=== PATIENT | female | born 1975 | race Caucasian/White ===

== ENCOUNTER 2018-10-11 17:29 | Inpatient (IN) | payer OTHER, MEDICAID ==
[~2018-10-11] VITALS: Ht 175.3 cm; Wt 95.7 kg
--- NOTE | 2018-10-11 18:00 | NUR ---
MARY PRATHER 878 From home "Tried to overdose yesterday on depakote now c/o nausea/Headache-feel weak". On room air, ambulatory with steady gait. kept comfortable. will continue to monitor accordingly. in no apparent distress at this time.
--- NOTE | 2018-10-11 18:10 | NUR ---
urine collected and sent to lab
[2018-10-11 18:38] LABS: BASOPHILS % (AUTO) 0.4 % (0.0-2.0); EOSINOPHILS % (AUTO) 0.5 % (0.0-6.0); HEMATOCRIT 42 % (33-45); HEMOGLOBIN 14.1 g/dL (11.5-14.8); LYMPHOCYTES # (AUTO) 1.6 /CMM (0.8-4.8); LYMPHOCYTES % (AUTO) 38.2 % (20.0-44.0); MEAN CORPUSCULAR HGB CONC 34 g/dl (31.0-36.0); MEAN CORPUSCULAR VOLUME 91 fL (82-100); MONOCYTES # (AUTO) 0.1 /CMM (0.1-1.30); MONOCYTES % (AUTO) 3.4 % (2.0-12.0); NEUTROPHILS # (AUTO) 2.4 /CMM (1.8-8.9); NEUTROPHILS % (AUTO) 57.5 % (43.0-81.0); PLATELET COUNT (AUTO) 216 /CMM (150-450); RED BLOOD CELL COUNT(AUTO) 4.59 MIL/uL (4.0-5.2); WHITE BLOOD COUNT (AUTO) 4.1 K/uL (4.3-11.0)
[2018-10-11 18:51] LABS: CALCIUM, SERUM 8.2 mg/dL (8.5-10.1); CARBON DIOXIDE 26 mmol/L (21-32); CHLORIDE 103 mmol/L (98-107); GLUCOSE 92 mg/dL (74-106); POTASSIUM 3.6 mmol/L (3.5-5.1); SODIUM SERUM 141 mmol/L (136-145); UREA NITROGEN, BLOOD 14 mg/dL (7-18)
[2018-10-11 18:58] LABS: ALANINE AMINOTRANSFERASE 23 U/L (12-78); ALBUMIN 3.3 g/dL (3.4-5.0); ALCOHOL, BLOOD < 3 mg/dL (0-0); ALKALINE PHOSPHATASE 32 U/L (46-116); ASPARTATE AMINOTRANSFERASE 16 U/L (15-37); BILIRUBIN,DIRECT 0.1 mg/dL (0.0-0.2); BILIRUBIN,TOTAL 0.3 mg/dL (0.2-1.0); TOTAL PROTEIN, SERUM 7.1 g/dL (6.4-8.2)
[2018-10-11 18:59] LABS: ACETAMINOPHEN < 2 ug/ml (10-30); SALICYLATE 1.2 mg/dL (2.8-20.0)
[2018-10-11 19:07] LABS: APPEARANCE,URINE CLEAR (CLEAR); BILIRUBIN,URINE NEGATIVE (NEGATIVE); BLOOD, URINE NEGATIVE Ery/uL (NEGATIVE); COLOR,URINE YELLOW (YELLOW); KETONES,URINE TRACE (NEGATIVE); LEUKOCYTE ESTERASE ,URINE NEGATIVE (NEGATIVE); NITRITE, URINE NEGATIVE (NEGATIVE); PROTEIN,URINE NEGATIVE (NEGATIVE); UGLUCOSE NEGATIVE (NEGATIVE); UROBILINOGEN,URINE 0.2 EU/dL (0.2)
[2018-10-11 19:21] LABS: BACTERIA,URINE N0 /HPF (None Seen); RBC,URINE 0-2 /HPF (0-2); SQUAMOUS EPITHELIAL CELL,UR 0-2 /HPF (None Seen); WBC,URINE 0-2 /HPF (0-3)
--- NOTE | 2018-10-11 19:35 | NUR ---
PATIENT VERBALIZED N/V, VOMITED X1, RECEIVED VERBAL ORDER FROM DR. BAUMAN TO GIVE REGLAN 10MG IM X1 DOSE. ORDER NOTED AND CARRIED OUT.
[2018-10-11] MEDS ORDERED: METOCLOPRAMIDE HCL 10 MG/2 ML VIAL IM ONE (20:00)
[2018-10-11] MEDS ORDERED: KETOROLAC TROMETHAMINE INJ 60 MG/2 ML VIAL IM ONE (20:30)
[2018-10-11] MEDS ORDERED: ONDANSETRON 4 MG TAB.RAPDIS SL ONE (20:30)
[2018-10-11] MEDS ORDERED: ONDANSETRON 4 MG TAB.RAPDIS ONE (20:49)
[2018-10-11] MEDS ORDERED: KETOROLAC TROMETHAMINE INJ 30 MG/ML VIAL ONE (20:49)
[2018-10-11] MEDS ORDERED: METOCLOPRAMIDE HCL 10 MG/2 ML VIAL ONE (20:49)
[2018-10-11] MEDS ORDERED: ONDANSETRON HCL/PF 4 MG/2 ML VIAL IV ONE (21:00)
--- NOTE | 2018-10-11 21:45 | NUR ---
STARTED IV ACCESS ON LHAND #20G
--- NOTE | 2018-10-11 21:50 | NUR ---
[facility] PAGED
--- NOTE | 2018-10-11 21:51 | NUR ---
[employer]AT[employer] ATTENDANT [employer]YSICAN PAGED
--- NOTE | 2018-10-11 22:00 | NUR ---
Pt REFUSED IV ZOFRAN AT THIS TIME. Pt STATED SHE DOES NOT FEEL NAUSEATED ANYMORE AND DID NOT WANT THE ZOFRAN.
--- NOTE | 2018-10-11 23:27 | NUR ---
Pt REQUESTING TO EAT. SAID SHE IS NO LONGER FEELING NAUSEATED AND IS NO LONGER VOMITING. MD SAID SNACKS FOR Pt IS FINE.
--- NOTE | 2018-10-12 00:30 | NUR ---
RN MS ADMITTING NOTES RECEIVED PT FROM ER VIA AJIT, PT AMBULATORY, AWAKE ALERT ORIENTED X4, BREATHING EVEN AND UNLABORED. NO COMPLAINT OF PAIN OR DISCOMFORT AT THIS TIME, IV ACCESS ON THE L HAND 18G. TELE MONITOR PLACE, SR IN THE 80S. BED IN LOWEST LOCKED POSITION, CALL LIGHT WITHIN REACH AT ALL TIMES. WILL CONTINUE TO MONITOR FREQUENTLY
--- NOTE | 2018-10-12 00:30 | NUR ---
Pt WAS SAFELY TRANSPORTED TO [facility] ROOM 107. REPORT WAS GIVEN TO RN, DEE DEE. NO S/S OF ACUTE DISTRESS OR SOB NOTED. RESPIRATIONS EVEN AND UNLABORED.
[2018-10-12] MEDS ORDERED: HYDROCODONE/APAP 5/325MG 1 EACH TABLET PO PRN (01:00)
[2018-10-12] MEDS ORDERED: Z GUARD REMEDY 2 OZ OINT TP PRN (01:00)
[2018-10-12] MEDS ORDERED: MAG HYDROX/AL HYDROX/SIMETH 30 ML UDC PO PRN (01:00)
[2018-10-12] MEDS ORDERED: TEMAZEPAM 15 MG CAPSULE PO PRN (01:00)
[2018-10-12] MEDS ORDERED: MAGNESIUM HYDROXIDE 30 ML UDC PO PRN (01:00)
[2018-10-12] MEDS ORDERED: ACETAMINOPHEN 325 MG TABLET PO PRN (01:00)
[2018-10-12] MEDS ORDERED: ONDANSETRON HCL/PF 4 MG/2 ML VIAL IVP PRN (01:00)
[2018-10-12] MEDS: IV NS 0.9% 1,000 ML IV PRN ×2 (01:27→16:19)
[2018-10-12 04:00] VITALS: BP 116/60
[2018-10-12 04:05] VITALS: BP 116/60
--- NOTE | 2018-10-12 06:02 | NUR ---
RN MS CLOSING NOTE PT REMAINS IN BED, AWAKE ALERT ORIENTED X4, BREATHING EVEN AND UNLABORED ON RA. NO COMPLAIN OF PAIN OR DISCOMFORT AT THE MOMENT. IV ACCESS ON THE L HAND 18G WITH NS @75ML/HR. ASSEMBLER FISHING FLOATS IN PLACE, SR IN THE 70S BED IN LOWEST LOCKED POSITION, CALL LIGHT WITHIN REACH AT ALL TIMES, WILL ENDORSE TO DAY NURSE FOR TANO.
--- NOTE | 2018-10-12 06:14 | NUR ---
IV ACCESS ON THE L WRIST 24G
--- NOTE | 2018-10-12 07:35 | NUR ---
TELE/RN OPENING NOTES RECEIVED PATIENT IN BED, AWAKE, ALERT AND ORIENTED X4. ABLE TO MAKE NEEDS KNOWN. NO PAIN OR ACUTE DISTRESS AT THIS TIME. RESPIRATION EVEN AND UNLABORED ON ROOM AIR. PATIENT NOTED WITH IV ACCESS ON THE L WRIST 20G WITH NS @75ML/HR. TOLERATED WELL. DRAMATIC CRITIC IN PLACE, SR 75. ALL NEEDS ANTICIPATED. CALL LIGHT WITHIN REACHED. BED IN LOWEST LOCKED POSITION. SAFETY MAINTAINED. WILL TO MONITOR PATIENT CLOSELY.
[2018-10-12 08:00] VITALS: BP_SYST 115; BP_SYST 136; BP_DIAS 69; BP_DIAS 87
[2018-10-12] MEDS ORDERED: ESTR1PAT23 TD (08:03)
[2018-10-12] MEDS ORDERED: DIVA500T2 PO (08:03)
[2018-10-12] MEDS ORDERED: SPIR100T5 PO (08:03)
[2018-10-12 12:00] VITALS: BP 108/58
[2018-10-12 14:19] LABS: SERUM AMMONIA 27 umol/L (11-32)
[2018-10-12 14:22] LABS: VALPROIC ACID 71 ug/mL (50-100)
[2018-10-12 16:00] VITALS: BP 115/70
--- NOTE | 2018-10-12 18:30 | NUR ---
TELE/DRIER UNLOADER NOTES PATIENT REMAINED STABLE THROUGHOUT THE SHIFT. PROVIDED COMFORT AND SAFETY. A FAMILY MEMBER CAME TO THE UNIT TO WET PROCESS MILLER THE PATIENT. ALL DISCHARGE PAPERS WAS GIVEN AND SIGNED. PATIENT ABLE TO UNDERSTAND EXIT TEACHINGS. PATIENT BELONGINGS WAS GIVEN AND SIGNED WELL. PATIENT ABLE TO AMBULATE AND WAS ACCOMPANIED OUT OF THE UNIT. PATIENT LEFT THE UNIT IN STABLE CONDITION.
== END 2018-10-12 19:00 | disposition home or self-care (01) | DRG 918 ==
LOC: ER 17:32 → MEDSG1 23:34 → TELE1 10-12 00:59
PROVIDERS: ADMIT Internal Medicine; ATTEND Hospitalist
DX: T42.6X2A Poisoning by other antiepileptic and sedative-hypnotic drugs, intentional self-harm, initial encounter (principal); E44.1 Mild protein-calorie malnutrition; R45.851 Suicidal ideations; Y92.009 Unspecified place in unspecified non-institutional (private) residence as the place of occurrence of the external cause; I10 Essential (primary) hypertension; F43.10 Post-traumatic stress disorder, unspecified; Z68.31 Body mass index [BMI] 31.0-31.9, adult; F32.9 Major depressive disorder, single episode, unspecified; F41.9 Anxiety disorder, unspecified; E88.09 Other disorders of plasma-protein metabolism, not elsewhere classified; G40.909 Epilepsy, unspecified, not intractable, without status epilepticus; Z79.890 Hormone replacement therapy
CPT/HCPCS: 36415; 80048-TC; 80076-TC; 80164-TC; 80305; 81000-TC; 82140-TC; 85025-TC; 87081-TC; G0378; G0480; J1885; J2765; J7030; Q0162

== ENCOUNTER 2019-03-22 17:18 | Emergency (ER) | payer OTHER, MEDICAID ==
[~2019-03-22] VITALS: Ht 177.8 cm; Wt 77.1 kg
[~2019-03-22 17:18] MED LIST: DIVA500T2 PO; ESTR1PAT23 TD; SPIR100T5 PO
--- NOTE | 2019-03-22 18:30 | NUR ---
Updated w/plan of care. Awaiting update and disposition . Diet served - tolerated/ate 90%
[2019-03-22 18:48] LABS: BASOPHILS # (AUTO) 0.1 /CMM (0.0-0.2); BASOPHILS % (AUTO) 0.9 % (0.0-2.0); EOSINOPHILS % (AUTO) 1.4 % (0.0-6.0); HEMATOCRIT 46 % (33-45); HEMOGLOBIN 15.6 g/dL (11.5-14.8); LYMPHOCYTES # (AUTO) 2.5 /CMM (0.8-4.8); LYMPHOCYTES % (AUTO) 26.6 % (20.0-44.0); MEAN CORPUSCULAR HGB CONC 34 g/dl (31.0-36.0); MEAN CORPUSCULAR VOLUME 88 fL (82-100); MONOCYTES # (AUTO) 0.6 /CMM (0.1-1.30); MONOCYTES % (AUTO) 6.9 % (2.0-12.0); NEUTROPHILS % (AUTO) 64.2 % (43.0-81.0); PLATELET COUNT (AUTO) 307 /CMM (150-450); RED BLOOD CELL COUNT(AUTO) 5.24 MIL/uL (4.0-5.2); WHITE BLOOD COUNT (AUTO) 9.4 K/uL (4.3-11.0)
[2019-03-22 18:56] LABS: CALCIUM, SERUM 9.7 mg/dL (8.5-10.1); CARBON DIOXIDE 24 mmol/L (21-32); CHLORIDE 100 mmol/L (98-107); CREATININE 1.2 mg/dL (0.6-1.3); GLUCOSE 267 mg/dL (74-106); POTASSIUM 3.8 mmol/L (3.5-5.1); SODIUM SERUM 136 mmol/L (136-145); UREA NITROGEN, BLOOD 18 mg/dL (7-18)
[2019-03-22] MEDS ORDERED: IV NS 0.9% 1,000 ML BAG IV ONE (19:00)
--- NOTE | 2019-03-22 19:22 | NUR ---
RUTHANN w/TONY Manrique
[2019-03-22 19:24] LABS: APPEARANCE,URINE Clear (CLEAR); BILIRUBIN,URINE Negative (NEGATIVE); BLOOD, URINE Negative Ery/uL (NEGATIVE); COLOR,URINE Yellow (YELLOW); KETONES,URINE Negative (NEGATIVE); LEUKOCYTE ESTERASE ,URINE Negative (NEGATIVE); NITRITE, URINE Negative (NEGATIVE); PH,URINE 5.5 (5.0-8.0); PROTEIN,URINE Negative (NEGATIVE); UGLUCOSE 250 MG/DL mg/dL (NEGATIVE); UROBILINOGEN,URINE 0.2 EU/dL (0.2)
--- NOTE | 2019-03-22 20:32 | NUR ---
IV removed. Catheter intact and site benign. Pressure and 4x4 applied to site. No bleeding noted.Patient discharged to home in stable condition. Written and verbal after care instructions given. Patient verbalizes understanding of instruction.
[2019-03-22 21:22] VITALS: BP 135/68
== END 2019-03-22 20:35 | disposition home or self-care (01) ==
LOC: ER 17:26
DX: R00.2 Palpitations (principal); E11.65 Type 2 diabetes mellitus with hyperglycemia; E78.5 Hyperlipidemia, unspecified; R00.0 Tachycardia, unspecified; R56.9 Unspecified convulsions; E78.00 Pure hypercholesterolemia, unspecified; I10 Essential (primary) hypertension; Z98.890 Other specified postprocedural states; Z60.2 Problems related to living alone; Z79.899 Other long term (current) drug therapy
CPT/HCPCS: 36415; 71045; 80048; 81001; 84484; 85025; 85378; 93005; 99284; J7030; 81000-TC

== ENCOUNTER 2019-08-23 13:49 | Emergency (ER) | payer OTHER ==
[~2019-08-23] VITALS: Ht 177.8 cm; Wt 99.8 kg
--- NOTE | 2019-08-23 14:15 | NUR ---
patient BIBRA from home, c/o abd pain since this morning and nausea vomiting, coughing x 3 days. On room air, breathing evenly and unlabored, connected to the monitor and pulse ox, will continue to monitor accordingly.
[2019-08-23 14:28] LABS: BASOPHILS % (AUTO) 0.5 % (0.0-2.0); EOSINOPHILS % (AUTO) 0.6 % (0.0-6.0); HEMATOCRIT 44 % (33-45); HEMOGLOBIN 14.9 g/dL (11.5-14.8); LYMPHOCYTES % (AUTO) 25.8 % (20.0-44.0); MEAN CORPUSCULAR HGB CONC 34 g/dl (31.0-36.0); MEAN CORPUSCULAR VOLUME 88 fL (82-100); MONOCYTES # (AUTO) 0.5 /CMM (0.1-1.30); MONOCYTES % (AUTO) 7.1 % (2.0-12.0); PLATELET COUNT (AUTO) 303 /CMM (150-450); RED BLOOD CELL COUNT(AUTO) 4.98 MIL/uL (4.0-5.2); WHITE BLOOD COUNT (AUTO) 7.6 K/uL (4.3-11.0)
[2019-08-23] MEDS ORDERED: PANTOPRAZOLE 40 MG VIAL ONE (14:30)
[2019-08-23] MEDS ORDERED: ONDANSETRON HCL/PF 4 MG/2 ML VIAL ONE (14:30)
[2019-08-23] MEDS ORDERED: ONDANSETRON HCL/PF - ER 4 MG/2 ML VIAL IV ONE (14:30)
[2019-08-23] MEDS ORDERED: PANTOPRAZOLE 40 MG VIAL IV ONE (14:30)
[2019-08-23 14:35] LABS: CALCIUM, SERUM 9.1 mg/dL (8.5-10.1); POTASSIUM 3.8 mmol/L (3.5-5.1)
[2019-08-23 14:41] LABS: ALBUMIN 3.5 g/dL (3.4-5.0); BILIRUBIN,DIRECT 0.1 mg/dL (0.0-0.2); BILIRUBIN,TOTAL 0.6 mg/dL (0.2-1.0); TOTAL PROTEIN, SERUM 7.9 g/dL (6.4-8.2)
[2019-08-23 14:51] LABS: BILIRUBIN,URINE Negative (NEGATIVE); BLOOD, URINE Trace-intact Ery/uL (NEGATIVE); COLOR,URINE Yellow (YELLOW); PROTEIN,URINE 30 mg/dl (NEGATIVE); UGLUCOSE Negative (NEGATIVE)
[2019-08-23 14:52] LABS: KETONES,URINE Trace (NEGATIVE); LEUKOCYTE ESTERASE ,URINE Negative (NEGATIVE); NITRITE, URINE Negative (NEGATIVE); UROBILINOGEN,URINE 0.2 EU/dL (0.2)
[2019-08-23 14:57] LABS: APPEARANCE,URINE SLIGHTLY HAZY (CLEAR)
[2019-08-23 15:01] LABS: BACTERIA,URINE None seen /HPF (None Seen); MUCUS,URINE Moderate /LPF (None Seen); SQUAMOUS EPITHELIAL CELL,UR Moderate /HPF (None Seen)
[2019-08-23 16:48] VITALS: BP 125/67
--- NOTE | 2019-08-23 16:48 | NUR ---
Patient discharged to home in stable condition. Written and verbal after care instructions given. Patient verbalizes understanding of instruction.IV removed. Catheter intact and site benign. Pressure and 4x4 applied to site. No bleeding noted.
== END 2019-08-23 16:48 | disposition home or self-care (01) ==
LOC: ER 13:56
DX: R10.13 Epigastric pain (principal); R74.0 Nonspecific elevation of levels of transaminase and lactic acid dehydrogenase [LDH]; F43.10 Post-traumatic stress disorder, unspecified; G40.909 Epilepsy, unspecified, not intractable, without status epilepticus; E78.5 Hyperlipidemia, unspecified; I10 Essential (primary) hypertension; K21.9 Gastro-esophageal reflux disease without esophagitis; E78.00 Pure hypercholesterolemia, unspecified; Z98.890 Other specified postprocedural states; Z60.2 Problems related to living alone; Z79.899 Other long term (current) drug therapy
CPT/HCPCS: 36415; 71045; 76705; 80048; 80076; 80164; 81001; 83690; 85025; 96374; 96375; 99285; C9113; J2405 ×2; 81000-TC

== ENCOUNTER 2019-10-03 03:24 | Emergency (ER) | payer OTHER ==
[~2019-10-03] VITALS: Ht 177.8 cm; Wt 99.8 kg
[2019-10-03 03:24] VITALS: BP 138/72
[2019-10-03] MEDS ORDERED: ONDANSETRON HCL/PF 4 MG/2 ML VIAL ONE (03:34)
[2019-10-03] MEDS ORDERED: AMOX/CLAVULANATE 875 MG TABLET ONE (03:59)
[2019-10-03] MEDS ORDERED: AMOX/CLAVULANATE 875 MG TABLET PO ONE (04:00)
[2019-10-03] MEDS ORDERED: ONDANSETRON HCL/PF 4 MG/2 ML VIAL IVP ONE (04:00)
[2019-10-03] MEDS ORDERED: IV NS 0.9% 1,000 ML BAG IV ONE (04:00)
== END 2019-10-03 04:49 | disposition home or self-care (01) ==
LOC: ER 03:27
DX: S51.811A Laceration without foreign body of right forearm, initial encounter (principal); S61.216A Laceration without foreign body of right little finger without damage to nail, initial encounter; S61.411A Laceration without foreign body of right hand, initial encounter; I10 Essential (primary) hypertension; E78.00 Pure hypercholesterolemia, unspecified; F43.10 Post-traumatic stress disorder, unspecified; F31.9 Bipolar disorder, unspecified; Z60.2 Problems related to living alone; Z79.899 Other long term (current) drug therapy; W55.01XA Bitten by cat, initial encounter; Y93.89 Activity, other specified; Y92.89 Other specified places as the place of occurrence of the external cause; Y99.8 Other external cause status
CPT/HCPCS: 73130; 99283; A6403; J7030; J2405

== ENCOUNTER 2019-12-03 02:34 | Emergency (ER) | payer OTHER, MEDICAID ==
[~2019-12-03] VITALS: Ht 175.3 cm; Wt 104.3 kg
--- NOTE | 2019-12-03 02:48 | NUR ---
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 PT ADMITS TO USING CRYSTAL METH AND MARIJUANA THIS EVENING. PT AAOX4, RESPIRATIONS EVEN AND UNLABORED ON RA W/ NAD NOTED. PT CONNECTED TO THE ENGINEERING TECHNICAL SPECIALIST AND POX
--- NOTE | 2019-12-03 02:50 | NUR ---
DR MATT AT BEDSIDE
--- NOTE | 2019-12-03 02:51 | NUR ---
EKG AT BEDSIDE
[2019-12-03] MEDS ORDERED: LORAZEPAM INJ 2 MG/ML VIAL ONE (03:03)
[2019-12-03 03:11] LABS: BASOPHILS # (AUTO) 0.1 /CMM (0.0-0.2); BASOPHILS % (AUTO) 0.7 % (0.0-2.0); EOSINOPHILS % (AUTO) 0.3 % (0.0-6.0); HEMATOCRIT 45 % (33-45); HEMOGLOBIN 15.1 g/dL (11.5-14.8); LYMPHOCYTES # (AUTO) 2.2 /CMM (0.8-4.8); LYMPHOCYTES % (AUTO) 21.6 % (20.0-44.0); MEAN CORPUSCULAR HGB CONC 34 g/dl (31.0-36.0); MEAN CORPUSCULAR VOLUME 88 fL (82-100); MONOCYTES # (AUTO) 0.6 /CMM (0.1-1.30); MONOCYTES % (AUTO) 5.6 % (2.0-12.0); NEUTROPHILS # (AUTO) 7.3 /CMM (1.8-8.9); NEUTROPHILS % (AUTO) 71.8 % (43.0-81.0); PLATELET COUNT (AUTO) 298 /CMM (150-450); RED BLOOD CELL COUNT(AUTO) 5.13 MIL/uL (4.0-5.2); WHITE BLOOD COUNT (AUTO) 10.1 K/uL (4.3-11.0)
[2019-12-03] MEDS: LORAZEPAM INJ 2 MG/ML VIAL IV ONE (03:11)
[2019-12-03] MEDS: IV NS 0.9% 1,000 ML BAG IV ONE (03:11)
[2019-12-03 03:23] LABS: CALCIUM, SERUM 8.8 mg/dL (8.5-10.1); CARBON DIOXIDE 24 mmol/L (21-32); CHLORIDE 98 mmol/L (98-107); CREATININE 1.1 mg/dL (0.6-1.3); GLUCOSE 179 mg/dL (74-106); POTASSIUM 3.5 mmol/L (3.5-5.1); SODIUM SERUM 135 mmol/L (136-145); UREA NITROGEN, BLOOD 10 mg/dL (7-18)
[2019-12-03 03:28] LABS: ALANINE AMINOTRANSFERASE 178 U/L (12-78); ALBUMIN 3.7 g/dL (3.4-5.0); ALKALINE PHOSPHATASE 63 U/L (46-116); ASPARTATE AMINOTRANSFERASE 126 U/L (15-37); BILIRUBIN,DIRECT 0.2 mg/dL (0.0-0.2); BILIRUBIN,TOTAL 0.6 mg/dL (0.2-1.0); LIPASE 90 U/L (73-393); TOTAL PROTEIN, SERUM 8.2 g/dL (6.4-8.2)
[2019-12-03 04:10] VITALS: BP 121/76
== END 2019-12-03 04:10 | disposition home or self-care (01) ==
LOC: ER 02:34
DX: F15.129 Other stimulant abuse with intoxication, unspecified (principal); R00.2 Palpitations; I10 Essential (primary) hypertension; E78.00 Pure hypercholesterolemia, unspecified; F43.10 Post-traumatic stress disorder, unspecified; G40.909 Epilepsy, unspecified, not intractable, without status epilepticus; F31.9 Bipolar disorder, unspecified; F41.9 Anxiety disorder, unspecified; Z60.2 Problems related to living alone; Z79.899 Other long term (current) drug therapy
CPT/HCPCS: 36415; 71045; 80048; 80076; 80164; 83690; 84484; 85025; 96361; 96374; 99284; J2060; J7030

== ENCOUNTER 2020-01-23 09:45 | Emergency (ER) | payer OTHER, MEDICAID ==
[~2020-01-23] VITALS: Ht 175.3 cm; Wt 95.3 kg
--- NOTE | 2020-01-23 10:23 | NUR ---
SEEN AND EXAMINED BY .
[2020-01-23] MEDS ORDERED: KETOROLAC TROMETHAMINE INJ 60 MG/2 ML VIAL IM ONE ×2 (10:34→11:00)
[2020-01-23 11:59] VITALS: BP 132/75
--- NOTE | 2020-01-23 11:59 | NUR ---
Patient discharged to home in stable condition. Written and verbal after care instructions given. Patient verbalizes understanding of instruction.
== END 2020-01-23 12:00 | disposition home or self-care (01) ==
LOC: ER 09:53
DX: L03.115 Cellulitis of right lower limb (principal); F41.9 Anxiety disorder, unspecified; I10 Essential (primary) hypertension; G40.909 Epilepsy, unspecified, not intractable, without status epilepticus; E78.5 Hyperlipidemia, unspecified; F43.10 Post-traumatic stress disorder, unspecified; F31.9 Bipolar disorder, unspecified; Z60.2 Problems related to living alone; Z79.899 Other long term (current) drug therapy
CPT/HCPCS: 73590; 96372; 99283; J1885

== ENCOUNTER 2021-08-29 05:31 | Emergency (ER) | payer OTHER ==
[~2021-08-29] VITALS: Ht 175.3 cm; Wt 81.6 kg
--- NOTE | 2021-08-29 06:45 | NUR ---
BIBRA 881 FOR C/O BACK AND BILATERAL ARM PAIN. PT A/O X 4, NO ACUTE DISTRESS NOTED. PT CONNECTED TO MONITORS.
[2021-08-29 06:51] LABS: BASOPHILS % (AUTO) 0.6 % (0.0-2.0); EOSINOPHILS % (AUTO) 0.6 % (0.0-6.0); HEMATOCRIT 39 % (33-45); LYMPHOCYTES # (AUTO) 1.9 K/uL (0.8-4.8); LYMPHOCYTES % (AUTO) 33.1 % (20.0-44.0); MEAN CORPUSCULAR HGB CONC 33 g/dl (31.0-36.0); MEAN CORPUSCULAR VOLUME 90 fL (82-100); MONOCYTES # (AUTO) 0.4 K/uL (0.1-1.30); MONOCYTES % (AUTO) 7.5 % (2.0-12.0); NEUTROPHILS # (AUTO) 3.4 K/uL (1.8-8.9); NEUTROPHILS % (AUTO) 58.2 % (43.0-81.0); PLATELET COUNT (AUTO) 250 K/uL (150-450); RED BLOOD CELL COUNT(AUTO) 4.33 MIL/uL (4.0-5.2); WHITE BLOOD COUNT (AUTO) 5.9 K/uL (4.3-11.0)
--- NOTE | 2021-08-29 06:51 | NUR ---
PT TAKENT TO CT
[2021-08-29 07:29] LABS: CALCIUM, SERUM 8.5 mg/dL (8.5-10.1); CARBON DIOXIDE 29 mmol/L (21-32); CHLORIDE 105 mmol/L (98-107); CREATININE 0.8 mg/dL (0.6-1.3); GLUCOSE 83 mg/dL (74-106); POTASSIUM 3.6 mmol/L (3.5-5.1); SODIUM SERUM 138 mmol/L (136-145); UREA NITROGEN, BLOOD 14 mg/dL (7-18)
--- NOTE | 2021-08-29 07:33 | NUR ---
PT SLEEPING IN BED, EASILY AROUSABLE
[2021-08-29 07:39] LABS: ALANINE AMINOTRANSFERASE 19 U/L (12-78); ALBUMIN 3.3 g/dL (3.4-5.0); ALKALINE PHOSPHATASE 57 U/L (46-116); ASPARTATE AMINOTRANSFERASE 18 U/L (15-37); BILIRUBIN,DIRECT 0.1 mg/dL (0.0-0.2); BILIRUBIN,TOTAL 0.3 mg/dL (0.2-1.0); TOTAL PROTEIN, SERUM 7.4 g/dL (6.4-8.2)
--- NOTE | 2021-08-29 08:15 | NUR ---
PT AWAKE, AAOX4, BREATHING EVEN AND UNLABORED, PULSES 2+ BILATERALLY, VS STABLE, WILL CONTINUE TO MONITOR.
[2021-08-29] MEDS: PHENYTOIN SODIUM IV 1,000 MG in IV NS 0.9% 100 ML IV ONE (09:14)
[2021-08-29] MEDS ORDERED: IBUP-1955 PO (09:16)
--- NOTE | 2021-08-29 09:18 | NUR ---
PT EATING BREAKFAST
[2021-08-29] MEDS ORDERED: IBUPROFEN 600 MG TABLET ONE (09:20)
[2021-08-29] MEDS: IBUPROFEN 600 MG TABLET PO ONE (09:22)
--- NOTE | 2021-08-29 09:40 | NUR ---
IV MEDICATION STILL INFUSING, PT TOLERATING WELL
--- NOTE | 2021-08-29 10:13 | NUR ---
Patient discharged to home in stable condition. Written and verbal after care instructions given. Patient verbalizes understanding of instruction.
--- NOTE | 2021-08-29 10:13 | NUR ---
IV removed. Catheter intact and site benign. Pressure and 4x4 applied to site. No bleeding noted.
[2021-08-29 10:19] VITALS: BP 117/72
== END 2021-08-29 10:14 | disposition home or self-care (01) ==
LOC: ER 05:33
DX: S20.229A Contusion of unspecified back wall of thorax, initial encounter (principal); S09.90XA Unspecified injury of head, initial encounter; R55 Syncope and collapse; R74.8 Abnormal levels of other serum enzymes; G40.909 Epilepsy, unspecified, not intractable, without status epilepticus; F43.10 Post-traumatic stress disorder, unspecified; I10 Essential (primary) hypertension; E11.9 Type 2 diabetes mellitus without complications; F31.9 Bipolar disorder, unspecified; E78.5 Hyperlipidemia, unspecified; F41.9 Anxiety disorder, unspecified; Z86.69 Personal history of other diseases of the nervous system and sense organs; Z79.899 Other long term (current) drug therapy; W18.30XA Fall on same level, unspecified, initial encounter; Y93.89 Activity, other specified; Y92.89 Other specified places as the place of occurrence of the external cause; Y99.8 Other external cause status
CPT/HCPCS: 36415; 70450; 71045; 72040; 72074; 73060 ×2; 80048; 80076; 80185; 84484; 85025; 93005 ×2; 96365; 99285; J1165; J7030